=== PATIENT | female | born 1985 | race Caucasian/White ===

== ENCOUNTER → 2022-11-13 10:17 | Outpatient (CLI) | payer OTHER, SELFPAY ==
--- NOTE | ~2022-11-13 | MM_ITS ---
EXAMINATION: MM screening [facility] BI w maria del carmen HISTORY: Screening mammogram TECHNIQUE: Craniocaudal and mediolateral oblique 3-D tomosynthesis images were obtained and synthetic 2-D images were generated. CAD analysis was submitted and interpreted. COMPARISON: None, baseline BREAST PARENCHYMAL COMPOSITION: The breasts are extremely dense, which lowers the sensitivity of mamm ography. FINDINGS: RIGHT BREAST: No suspicious mass, calcification, or architectural distortion are identified to sugges t malignancy. LEFT BREAST: There is a possible low-density mass in the anterior third of the inner breast best appr eciated on the craniocaudal view. IMPRESSION: 1. Possible left breast mass. 2. Additional mammographic views and possible breast ultrasound are recommended. BI-RADS Category 0: Incomplete: Needs additional imaging evaluation. Reviewed, dictated and finalized at location A. IMPRESSION: 1. Possible left breast mass. 2. Additional mammographic views and possible breast ultrasound are recommended . BI-RADS Category 0: Incomplete: Needs additional imaging evaluation.
== END ==
PROVIDERS: PCP Obstetrics & Gynecology; Visit Provider Obstetrics & Gynecology
DX: Z12.31 Encounter for screening mammogram for malignant neoplasm of breast (principal); R92.8 Other abnormal and inconclusive findings on diagnostic imaging of breast
CPT/HCPCS: 77063; 77067

== ENCOUNTER → 2022-12-09 08:51 | Outpatient (CLI) | payer OTHER, SELFPAY ==
--- NOTE | ~2022-12-09 | MMUS_ITS ---
EXAMINATION: MM diagnostic [facility] LT w maria del carmen, US breast LT limited HISTORY: Possible left breast mass on screening mammogram TECHNIQUE: Additional 3-D tomosynthesis images of the left breast were performed and synthetic 2-D im ages were generated. CAD analysis was submitted and interpreted. High resolution limited left breast ultrasound was performed. COMPARISON: 11/13/2022 FINDINGS: MAMMOGRAPHIC FINDINGS: No persistent suspected mass is identified with spot compression of the left breast. No suspicious ca lcification or architectural distortion are identified. ULTRASOUND: There is no evidence of focal abnormal solid or cystic mass in the vicinity of the mammographic findi ng in question. IMPRESSION: 1. No mammographic or sonographic evidence of malignancy. 2. Recommend routine screening mammography in one year. BI-RADS Category 1: Negative Reviewed, dictated and finalized at location A. IMPRESSION: 1. No mammographic or sonographic evidence of malignancy. 2. Recommend routine screening mammography in one year. BI-RADS Category 1: Negative
== END ==
PROVIDERS: PCP Internal Medicine; Visit Provider Obstetrics & Gynecology
DX: N63.20 Unspecified lump in the left breast, unspecified quadrant (principal)
CPT/HCPCS: 76642; 77061; 77065; G0279

== ENCOUNTER → 2023-07-28 12:48 | Outpatient (CLI) | payer OTHER, SELFPAY ==
--- NOTE | ~2023-07-28 | US_ITS ---
EXAMINATION: US pelvic complete w TV DATE: 07/28/2023 13:17 INDICATION: Left pelvic pain. TECHNIQUE: Multiple transabdominal and transvaginal sonographic images of the pelvis were obtained. COMPARISON: None. FINDINGS: TRANSABDOMINAL ULTRASOUND: The uterus measures 8.2 x 4.6 x 4.2 cm. There is no free fluid in the pelvis. TRANSVAGINAL ULTRASOUND: The endometrial complex measures 6 mm in thickness. The right ovary is not visualized. The left ovary measures 5.9 x 4.1 x 5.1 cm. There is a 5.2 cm cyst with peripheral low level echoes in left ovary, consistent with a hemorrhagic cyst. There is vascular flow to left ovary. IMPRESSION: 1. 5.2 cm hemorrhagic cyst in left ovary. Pelvis ultrasound is recommended in 6-12 weeks. Reviewed, dictated and finalized at location E. 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 5.2 cm hemorrhagic cyst in left ovary. Pelvis ultrasound is recommended in 6 -12 weeks.
== END ==
PROVIDERS: PCP Obstetrics & Gynecology; Visit Provider Obstetrics & Gynecology
DX: R10.2 Pelvic and perineal pain (principal); N83.202 Unspecified ovarian cyst, left side
CPT/HCPCS: 76830; 76856

== ENCOUNTER → 2023-08-11 09:19 | Outpatient (CLI) | payer OTHER, SELFPAY ==
--- NOTE | ~2023-08-11 | US_ITS ---
Pelvic ultrasound. Clinical History: Left ovarian cyst COMPARISON: 07/28/2023 Technique: Realtime transabdominal and transvaginal scanning of the pelvis was performed. Color flow Doppler and Doppler spectral analysis were performed. Findings: The uterus is retroverted. The endometrial stripe has a thickness of 4 mm. No focal mass i s identified. The right ovary measures 2.7 x 2.1 x 1.8 cm. No significant right ovarian or adnexal mass is seen. There is a 5.1 cm simple left ovarian cyst, within right ovarian tissue splayed around the cyst. Vascular flow present in both ovaries on Doppler spectral analysis. There is no evidence of free fluid in the cul de sac. Impression: 5.1 cm simple left ovarian cyst, essentially unchanged from prior exam. Consider follow-up exam in 6- 8 weeks to reassess. Reviewed, dictated and finalized at [facility]. 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 Conside r follow-up exam in 6-8 weeks to reassess.
== END ==
PROVIDERS: PCP Nurse Practitioner; Visit Provider Obstetrics & Gynecology
DX: N83.202 Unspecified ovarian cyst, left side (principal)
CPT/HCPCS: 76830; 76856

== ENCOUNTER 2024-02-24 13:25 | Outpatient (CLI) | payer OTHER, SELFPAY ==
--- NOTE | ~2024-02-24 | MM_ITS ---
EXAMINATION: MM screening [facility] BI w maria del carmen HISTORY: Screening TECHNIQUE: Craniocaudal and mediolateral oblique 3-D tomosynthesis images were obtained and synthetic 2-D images were generated. CAD analysis was submitted and interpreted. COMPARISON: Comparison to multiple prior studies sequentially, with oldest reviewed study dated 11/13. BREAST PARENCHYMAL COMPOSITION: Dense: The breasts are extremely dense, which lowers the sensitivity of mammography. FINDINGS: There is no evidence of suspicious mass, calcification, or architectural distortion to sugg est malignancy in either breast. There has been no suspicious interval change. IMPRESSION: 1. No mammographic evidence of malignancy. 2. Recommend routine screening mammography in one year. BI-RADS Category 1: Negative Reviewed, dictated and finalized at location B.
== END 2024-02-24 13:26 ==
LOC: MICIMG 13:26
PROVIDERS: PCP Nurse Practitioner; Visit Provider Obstetrics & Gynecology
DX: Z12.31 Encounter for screening mammogram for malignant neoplasm of breast (principal)
CPT/HCPCS: 77063; 77067

== ENCOUNTER 2025-03-22 14:35 | Outpatient (CLI) | payer OTHER, SELFPAY ==
--- NOTE | ~2025-03-22 | MM_ITS ---
EXAMINATION: MM screening [facility] BI w maria del carmen HISTORY: Screening TECHNIQUE: Craniocaudal and mediolateral oblique 3-D tomosynthesis images were obtained and synthetic 2-D images were generated. CAD analysis was submitted and interpreted. COMPARISON: Comparison to multiple prior studies sequentially, with oldest reviewed study dated , 11/13/2022 BREAST PARENCHYMAL COMPOSITION: The breasts are extremely dense, which lowers the sensitivity of mammography. FINDINGS: There is no evidence of suspicious mass, calcification, or architectural distortion to suggest malignancy in either breast. IMPRESSION: 1. No mammographic evidence of malignancy. 2. Recommend routine screening mammography in one year. BI-RADS Category 1: Negative Reviewed, dictated and finalized at location B.
--- OUTSIDE RECORDS SUMMARY | 2025-03-22 14:38 | XMS_ITS | Clinical Summary ---
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 Prescription for antibiotics sent. Reviewed potential benefits and potential side effects of augmentin. Aware to complete full course of antibiotic. To continue otc medications. Discussed nasal saline rinses/neti pots. Discussed need to increase fluid intake. May use 1 teaspoon honey every 4 hours as needed for cough, encourage use of hot tea or hot water with honey. May use vicks vapo rub on chest and bottom of feet before bed. Cool mist humidifier in bedroom. Lots of water, rest and handwashing, no sharing cups or utensils. If symptoms worsen including but not limited to shortness of breath, chest pain and/or increasing pain please notify office or present to Emergency Department. Social History Tobacco Use Types Packs/Day Years Used Date Smoking Tobacco: Never Assessed Personal Safety Answer Date Recorded Getting School Help Needed Not on file 07/31 Comments Unknown Sex and Gender Information Value Date Recorded Sex Assigned at Not on file Legal Sex Female 3:27 PM [facility] PHYSICIAN Gender Identity Female 06/16/2022 6:49 AM [facility] PHYSICIAN Sexual Orientation Not on file Plan of Treatment Health Maintenance Due Date Last Done Comments Cervical Cancer Screening 1987 Depression Screening 1987 Hepatitis C Screening 1987 Varicella Vaccines (1 of 2 - 13+ 2-dose series) 2000 Hepatitis B Screening 2005 Regular Well Visit/Exam 18-64 2005 HPV Vaccines (1 - 3-dose SCD M series) 2014 Influenza Vaccine (#1) 2025 , 04/25/2018, 08/01/2015 DTaP/Tdap/Td Vaccine (2 - Td or Tdap) 09/19/2025 09/19/2015 Pneumococcal vaccine <65 Aged Out No longer eligible based on patient's age to complete this topic [facility]
--- OUTSIDE RECORDS SUMMARY | 2025-03-22 14:38 | XMS_ITS | Patient Health Record ---
Author Organization [facility] [employer] [place] ([address]) Address [address] [place] [address] Care Team Providers Care Supervisor [employer] Name Role Phone Duque Lakisha Primary Care Provider Nighat Vu [phone] Allergies No Known Allergies Results Component Value Reference Range Notes -GARCIA w/Reflex Reviewed date:09/26/2024 02:23:02 PM Interpretation:Normal [facility] [address] [place] [id number], Phone - [phone], Director - [place] Notes/Report: GARCIA Direct Negative Negative -C1 Esterase Inhibitor, Func Reviewed date:09/28/2024 11:33:25 AM Interpretation:Normal Performing Lab:[address] [id number], Phone - [phone], Director - [place] Notes/Report: C1 Est.Inhib.Funct. >110 Abnormal <41 Equivocal 41 - 67 Normal >67 -C1 Esterase Inhibitor, Seru m Reviewed date:09/28/2024 12:16:41 PM Interpretation:Normal Performing Lab:[address] [id number], Phone - [phone], Director - [place] Notes/Report: C1 Esterase Inhibitor, Serum 23 21-39 mg/dL -Complement, Total (CH50) ([id number]) Reviewed date:09/26/2024 02:22:45 PM Interpretation:Normal Performing Lab:[facility] [address], [place], [place] [id number], Phone - [phone], Director - [facility] Notes/Report: Complement, Total (CH50) 52 >41 U/mL Age Male Female 1 - 30 days Not Estab. Not Estab. 31 days - 6 months >32 >20 7 months - 17 years >39 >39 >17 years >41 >41 NOTE: The adult (>17 years) reference interval range is used to flag abnormals on this report. If the patient is 17 years old or younger, use the table above to determine out of range values. -Complement C4, Serum Reviewed date:10/23/2024 04:23:32 PM Interpretation:Abnormal Performing Lab:[address] [id number], Phone - [phone], Director - [facility] Notes/Report: Complement C4, Serum 9 12-38 mg/dL -Complement C4, Serum Reviewed date:08/10/2024 04:14:42 PM Interpretation:Abnormal Performing Lab:[address] [id number], Phone - [phone], Director - [facility] Notes/Report: Complement C4, Serum 10 12-38 mg/dL -Chronic Urticaria -- Anti-I gE ([id number]) Reviewed date:08/16/2024 07:34:44 AM Interpretation:Abnormal Performing Lab:[employer] [facility], [address] [place] [id number], Phone - [phone], Director - [facility] Notes/Report: Anti-IgE* See below: Normal ELEVATED This NORMA measures IgG antibodies specific for IgE. A result of normal indicates that the level of IgG anti-IgE antibodies is similar to that seen in a population of healthy individuals. A result of elevated indicates an increased level of IgG anti-IgE antibodies compared to healthy individuals. These autoantibodies have been implicated as a causative agent in autoimmune chronic urticaria and atopic dermatitis. FLAG Interpretation: A = Abnormal, H = High, L = Low -Tryptase ([id number]) Reviewed date:08/07/2024 08:05:57 AM Interpretation:Normal Performing Lab:[address], [place] [id number], Phone - [phone], Director - [facility] Notes/Report: Tryptase 2.3 2.2-13.2 ug/L -CU Panel ([id number]) Reviewed date:08/10/2024 04:15:32 PM Interpretation:Abnormal Performing Lab:[facility] [address] [id number], Phone - [phone], Director - [facility] Notes/Report: Glucose 100 70-99 mg/dL BUN 17 6-20 mg/dL Creatinine 0.84 0.57-1.00 mg/dL eGFR 92 >59 mL/min/1.73 BUN/Creatinine Ratio 20 9-23 Sodium 136 134-144 mmol/L Potassium 4.7 3.5-5.2 mmol/L Chloride 98 96-106 mmol/L Carbon Dioxide, Total 26 20-29 mmol/L Calcium 9.5 8.7-10.2 mg/dL Protein, Total 7.5 6.0-8.5 g/dL Albumin 4.6 3.9-4.9 g/dL Globulin, Total 2.9 1.5-4.5 g/dL Bilirubin, Total 0.3 0.0-1.2 mg/dL Alkaline Phosphatase 47 44-121 IU/L AST (SGOT) 10 0-40 IU/L ALT (SGPT) 16 0-32 IU/L Immunoglobulin A, Qn, Serum 224 87-352 mg/dL Immunoglobulin E, Total 15 6-495 IU/mL TSH 1.720 0.450-4.500 uIU/mL GARCIA Direct Positive Negative Rheumatoid Factor (RF) <10.0 <14.0 IU/mL Thyroid Peroxidase (TPO) Ab 66 0-34 IU/mL Thyroglobulin Antibody 5.8 0.0-0.9 IU/mL Thyroglobulin Antibody measured by [facility] . It should be noted that the presence of thyroglobulin antibodies may not be pathogenic nor diagnostic, especially at very low levels. The assay culinary director has found that four percent of individuals without evidence of thyroid disease or autoimmunity will have positive TgAb levels up to 4 IU/mL. Deamidated Gliadin Abs, IgA 4 0-19 units Negative 0 - 19 Weak Positive 20 - 30 Moderate to Strong Positive >30 Deamidated Gliadin Abs, IgG 10 0-19 units Negative 0 - 19 Weak Positive 20 - 30 Moderate to Strong Positive >30 t-Transglutaminase (tTG) IgA <2 0-3 U/mL Negative 0 - 3 Weak Positive 4 - 10 Positive >10 . Tissue Transglutaminase (tTG) has been identified as the endomysial antigen. Studies have demonstr- ated that endomysial IgA antibodies have over 99% specificity for gluten sensitive enteropathy. t-Transglutaminase (tTG) IgG 5 0-5 U/mL Negative 0 - 5 Weak Positive 6 - 9 Positive >9 Endomysial Antibody IgA Negative Negative WBC 7.1 3.4-10.8 x10E3/uL RBC 4.49 3.77-5.28 x10E6/uL Hemoglobin 13.3 11.1-15.9 g/dL Hematocrit 41.2 34.0-46.6 % MCV 92 79-97 fL MCH 29.6 26.6-33.0 pg MCHC 32.3 31.5-35.7 g/dL RDW 12.5 11.7-15.4 % Platelets 307 150-450 x10E3/uL Neutrophils 65 Not Estab. % Lymphs 28 Not Estab. % Monocytes 6 Not Estab. % Eos 1 Not Estab. % Basos 0 Not Estab. % Neutrophils (Absolute) 4.5 1.4-7.0 x10E3/uL Lymphs (Absolute) 2.0 0.7-3.1 x10E3/uL Monocytes(Absolute) 0.5 0.1-0.9 x10E3/uL Eos (Absolute) 0.1 0.0-0.4 x10E3/uL Baso (Absolute) 0.0 0.0-0.2 x10E3/uL Immature Granulocytes 0 Not Estab. % Immature Grans (Abs) 0.0 0.0-0.1 x10E3/uL Sedimentation Rate-Westergren 8 0-32 mm/hr Specific [place] 1.015 1.005-1.030 pH 8.0 5.0-7.5 Urine-Color Yellow Yellow Appearance Clear Clear WBC Esterase Negative Negative Protein Negative Negative/Trace Glucose Negative Negative Ketones Negative Negative Occult Blood Negative Negative Bilirubin Negative Negative Urobilinogen,Semi-Qn 0.2 0.2-1.0 mg/dL Nitrite, Urine Negative Negative Microscopic Examination Micr oscopic follows if indicated. Microscopic Examination See below: Micr oscopic was indicated and was performed. Anti-DNA (DS) Ab Qn 7 0-9 IU/mL Negative <5 Equivocal 5 - 9 Positive >9 SALES CONSULTANT Antibodies <0.2 0.0-0.9 AI Chaves Antibodies <0.2 0.0-0.9 AI Antiscleroderma-70 Antibodies <0.2 0.0-0.9 AI Sjogren's Anti-SS-A 0.4 0.0-0.9 AI Sjogren's Anti-SS-B <0.2 0.0-0.9 AI Antichromatin Antibodies 1.1 0.0-0.9 AI Anti-Marnie-1 <0.2 0.0-0.9 AI Anti-Centromere B Antibodies <0.2 0.0-0.9 AI See below: Autoantibody Disease Association ---- Condition Frequency --------- Antinuclear Antibody, SLE, mixed connective Direct (GARCIA-D) tissue diseases --------- dsDNA SLE 40 - 60% --------- Chromatin Drug induced SLE 90% SLE 48 - 97% --------- SSA (Ro) SLE 25 - 35% Sjogren's Syndrome 40 - 70% Lupus 100% --------- SSB (La) SLE 10% Sjogren's Syndrome 30% --------- Sm (anti-Chaves) SLE 15 - 30% --------- SALES CONSULTANT Mixed Connective Tissue Disease 95% (U1 nRNP, SLE 30 - 50% anti-ribonucleoprotein) Polymyositis and/or Dermatomyositis 20% --------- Scl-70 (antiDNA Scleroderma (diffuse) 20 - 35% topoisomerase) Crest 13% --------- Marnie-1 Polymyositis and/or Dermatomyositis 20 - 40% --------- Centromere B Scleroderma - Crest variant 80% WBC None seen 0 - 5 /hpf RBC 0-2 0 - 2 /hpf Epithelial Cells (non renal) 0-10 0 - 10 /hpf Casts None seen None seen /lpf Bacteria None seen None seen/Few -Chronic Urticaria -- Autoim mune IgE receptor antibody ([id number]) Reviewed date:08/16/2024 07:34:27 AM Interpretation:Normal Performing Lab:[place], [address], [facility], [place], [place] [id number], Phone - [phone], [facility] Notes/Report: cu index 3.4 <10 The CU Index(R) test is the second generation Functional Anti-FceR test. Patients with a CU Index(R) greater than or equal to 10 have basophil reactive factors in their serum which supports an autoimmune basis for disease. *This test was developed and its performance characteristics determined by [employer]. It has not been cleared or approved by the U.S. Food and Drug Administration. FLAG Interpretation: A = Abnormal, H = High, L = Low Reason For Referral No Information Medications Medication SIG (Take, Route, Frequency, Duration) Notes Start Date End Date Status Famotidine 20 MG TAKE 1 TABLET BY YOSEPH TH TWICE A DAY FOR 30 DAYS; Duration: 90 Active Cetirizine HCl 10 MG TAKE 1 TABLET BY MO UTH TWICE A DAY FOR 30 DAYS; Duration: 90 Active Montelukast Sodium 10 MG TAKE 1 TABLET B Y MOUTH EVERY DAY FOR 30 DAYS; Duration: 90 Active Montelukast Sodium 10 MG 1 tablet Orally Once a day; Duration: 30 days Active Famotidine 20 MG 1 tablet Orally Twic e a day; Duration: 30 days Active Cetirizine HCl 10 MG 1 tablet Orally Twi ce a day; Duration: 30 days Active predniSONE 20 MG 2 tablets Orally Once a day; Duration: 5 days Call office before use Active Auvi-Q 0.3 MG/0.3ML as directed Injectio n as needed; Duration: 30 days Active Rosa 0.25-35 MG-MCG 1 tablet Orally Once a day Active Social History Tobacco Use: Social History Observation Description Date Details (start date - stop date) Never Smoker NA - NA Sex Assigned At : Social History Observation Description Sex Assigned At Female Tobacco Control (Standard) Question Answer Notes Tobacco use: Nonsmoker AUDIT-C (Standard) Question Answer Notes Did you have a drink contain ing alcohol in the past year? Yes How often did you have a dri nk containing alcohol in the past year? 2 to 4 times a month (2 points) How many drinks did you have on a typical day when you were drinking in the past year? 1 or 2 drinks (0 point) How often did you have six o r more drinks on one occasion in the past year? Never (0 point) Points 2 Interpretation Negative Vital Signs Blood pressure diastolic 72 mm Hg 01/16/2025 Oximetry 99 % 01/16/2025 Height 65 in 01/16/2025 Blood pressure systolic 109 mm Hg 01/16/2025 Weight 132.6 lbs 01/16/2025 BMI 22.06 kg/m2 01/16/2025 Encounters Encounter [facility] Date [facility] [address] 01/16/2025 Nighat Morales Other urticaria L5 0.8 ; Pruritus, unspecified L29.9 and Localized swelling, mass and lump, head R22.0 [facility] [address] [place] [address] 09/25/2024 Nighat Morales Other urticaria L50. 8 ; Pruritus, unspecified L29.9 and Localized swelling, mass and lump, head R22.0 [facility] [address] [place] [address] 06/27/2024 Nighat Morales Other urticaria L50. 8 ; Pruritus, unspecified L29.9 and Localized swelling, mass and lump, head R22.0 [facility] [address] 10/23/2024 Nighat BELLE [facility] [address] [place] [address] 08/10/2024 Nighat BELLE [facility] [address] [place] [address] 09/20/2024 Nighat BELLE [facility] [address] [place] [address] 09/20/2024 Nighat VANE[address] [place] [address] 09/20/2024 Nighat Morales [facility] [address] [place] [address] 03/19/2025 Nighat Morales Assessments Encounter Date Diagnosis (ICD Code) Assessment Notes Treatment Notes Treatment Clinical Notes Section Notes 06/27/2024 Pruritus, unspecified (ICD-10 - L29.9) See plan above 06/27/2024 Other urticaria (ICD-10 - L50.8) Skylar presents with complaints of raised, erythematous and pruritic wheals that have occurred randomly throughout her life. Most recently occurred 3 weeks ago, she awoke to raised wheals and pruritus that lasted for several days. Wheals would move to different locations. She was treated with antihistamines and prednisone. Symptoms have not recurred since. The last time Skylar experienced similar symptoms was one decade ago. Symptoms have been occurring for > 6 weeks throughout her life. She denies clear triggers. Does admit to significant stress at the time. - Given the history and presenting symptoms, consider probable chronic spontaneous urticaria with episodes of angioedema. - Skylar does not want to start daily medications at this time. At times symptoms will occur months-years apart. Due to this, discussed plan of starting Zyrtec 10 mg BID, Pepcid 20 mg BID and Singulair 10 mg at night if symptoms flare. Will also send a safety prescription of prednisone for Skylar to keep on hand, however she must contact the office before use. - Will check labs for underlying autoimmune, thyroid, and mast cell conditions. Recent CBC and CMP normal. - Briefly discussed Xolair for refractory symptoms. -Return follow-up in one month for further evaluation and management and laboratory review 09/25/2024 Pruritus, unspecified (ICD-10 - L29.9) See plan above 09/25/2024 Other urticaria (ICD-10 - L50.8) Skylar presented to her initial visit with complaints of raised, erythematous and pruritic wheals that have occurred randomly throughout her life. Most recently in May, she awoke to raised wheals and pruritus that lasted for several days. Wheals would move to different locations. She was treated with antihistamines and prednisone. Symptoms have not recurred since. The last time Skylar experienced similar symptoms was one decade ago. Symptoms have been occurring for > 6 weeks throughout her life. She denies clear triggers. Does admit to significant stress at the time. - Given the history and presenting symptoms, consider probable chronic spontaneous urticaria with episodes of angioedema. - Skylar does not want to start daily medications at this time. At times symptoms will occur months-years apart. Due to this, discussed plan of starting Zyrtec 10 mg BID, Pepcid 20 mg BID and Singulair 10 mg at night if symptoms flare. Will also send a safety prescription of prednisone for Skylar to keep on hand, however she must contact the office before use. Skylar has had two hive flares since last visit, which improved with antihistamines as above. She has not required oral prednisone. - Ordered labs to check for underlying autoimmune, thyroid, and mast cell conditions. Labs show positive GARCIA screening. Also slightly reduced C4. Will obtain full angioedema panel; Skylar denies history of swelling outside the setting of urticaria. No family history of swelling. Will also repeat GARCIA as Skylar reports recent negative GARCIA with her PCP. Consider Rheumatology evaluation, appreciate PCP arranging. - Briefly discussed Xolair for refractory symptoms. - Return for follow-up in three months for further evaluation and management 01/16/2025 Pruritus, unspecified (ICD-10 - L29.9) See plan above 01/16/2025 Other urticaria (ICD-10 - L50.8) Skylar presented to her initial visit with complaints of raised, erythematous and pruritic wheals that have occurred randomly throughout her life. Most recently in May, she awoke to raised wheals and pruritus that lasted for several days. Wheals would move to different locations. She was treated with antihistamines and prednisone. Symptoms have not recurred since. The last time Skylar experienced similar symptoms was one decade ago. Symptoms have been occurring for > 6 weeks throughout her life. She denies clear triggers. Does admit to significant stress at the time. - Given the history and presenting symptoms, consider probable chronic spontaneous urticaria with episodes of angioedema. - Skylar does not want to start daily medications at this time. At times symptoms will occur months-years apart. Due to this, discussed plan of starting Zyrtec 10 mg BID, Pepcid 20 mg BID and Singulair 10 mg at night if symptoms flare. Also sent a safety prescription of prednisone for Skylar to keep on hand, however she must contact the office before use. Skylar has not had interval symptoms. - Ordered labs to check for underlying autoimmune, thyroid, and mast cell conditions. Labs show positive GARCIA screening. Also slightly reduced C4. Obtained full angioedema panel that returned within normal range aside from C4; Skylar denies history of swelling outside the setting of urticaria. No family history of swelling. We will plan to obtain a biopsy if symptoms occur. Skylar is in agreement, slated to establish care with dermatology. - Briefly discussed Xolair for refractory symptoms. - Return for follow-up in six months for further evaluation and management 01/16/2025 Localized swelling, mass and lump, head (ICD-10 - R22.0) Skylar reports mild facial, hand and feet swelling associated with urticaria. No history of swelling at other times. No family history of swelling. - AIE sent with instructions for Skylar to carry as a precaution, Skylar is carrying at all times 09/25/2024 Localized swelling, mass and lump, head (ICD-10 - R22.0) Skylar reports mild facial, hand and feet swelling associated with urticaria. No history of swelling at other times. No family history of swelling. - AIE sent with instructions for Skylar to carry as a precaution 06/27/2024 Localized swelling, mass and lump, head (ICD-10 - R22.0) Skylar reports mild facial, hand and feet swelling associated with urticaria. No history of swelling at other times. No family history of swelling. - Will send AIE to carry as a precaution, we discussed indications of use 09/25/2024 Other 01/16/2025 Other 06/27/2024 Other Plan Of Treatment Next Appt Details Provider Name:Nighat zurita, 07/10/2025 10:30:00 AM, [address] [facility], [address], [place], [address], Insurance Providers Payer Name Payer Address Payer Phone Subscriber Number Group Number Insured Name Patient Relationship to Insured Coverage Start Date Coverage End Date [facility] [address] [address] [place] [address] [id number] Prasanna Harding Spouse - patient is the spouse of the insured 4 Medical (General) History Surgical History Surgery Date(Month/Year) D & C
--- OUTSIDE RECORDS SUMMARY | 2025-03-22 14:38 | XMS_ITS | Clinical Summary ---
Author Organization [facility] Address [address] [address] Care Team Providers Care Radio Engineer Name Role Phone Unavailable Primary Care Provider Unavailabl e Allergies No known active allergies Medications Rosa 0.25-35 mg-mcg tablet Take 1 Tablet by mouth daily. 06/02/2021 Active Active Problems No known active problems Immunizations Immunization Administration Dates Next Due (PFIZER)(12 YR UP) COVID-19 VACCINE - EMERGENCY USE AUTHORIZATION, MRNA, [id number](PF) 30 MCG/0.3 ML IM SUSP 06/06/2021 (SPIKEVAX) (12 YRS UP PRIMAR Y SERIES) COVID-19 VACCINE - [id number](PF) 100 MCG/0.5 ML IM SUSP 10/15/2020,09/04/2020 Influenza Seasonal Unspecified Formulation IM Family History Medical History Relation Name Comments No Known Problems Brother No Known Problems Daughter Sudden Father Esophageal Cancer Maternal Grandfather Thyroid Cancer Maternal Grandmother Hypertension Mother COPD Paternal Grandfather Unknown Paternal Grandmother Relation Name Status Comments Brother Alive Daughter Alive Father Maternal Grandfather Maternal Grandmother Mother Alive Paternal Grandfather Paternal Grandmother Social History Tobacco Use Types Packs/Day Years Used Date Smoking Tobacco: Former Smokeless Tobacco: Never Alcohol Use Standard Drinks/Week Comments Yes 0 (1 standard drink = 0.6 oz pur e alcohol) occasionally Comments No Sex and Gender Information Value Date Recorded Sex Assigned at Not on file Legal Sex Female 7:19 AM AUTOMOTIVE SERVICE 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 Gender Identity Not on file Sexual Orientation Not on file Last Filed Vital Signs Vital Sign Reading Time Taken Comments Blood Pressure 98/62 07/14/2021 8:37 AM AUTOMOTIVE SERVICE MANAGER Pulse 86 07/14/2021 8:37 AM AUTOMOTIVE SERVICE MANAGER Temperature 36.8 C (98.2 F) 07/14/2021 8:37 AM AUTOMOTIVE SERVICE MANAGER Respiratory Rate 16 07/14/2021 8:37 AM AUTOMOTIVE SERVICE MANAGER Oxygen Saturation 99% 07/14/2021 8:37 AM AUTOMOTIVE SERVICE MANAGER Inhaled Oxygen Concentration - - Weight 60.8 kg (134 lb) 07/14/2021 8:37 AM AUTOMOTIVE SERVICE MANAGER Height 165.1 cm (5' 5) 07/14/2021 8:37 AM AUTOMOTIVE SERVICE MANAGER Body Mass Index 22.3 07/14/2021 8:37 AM AUTOMOTIVE SERVICE MANAGER Plan of Treatment Health Maintenance Due Date Last Done Comments HEPATITIS B VACCINES (1 of 3 - 19+ 3-dose series) 2006 HPV/Cotest (21-29) 2008 HPV VACCINES (1 - 3-dose SCD M series) 2014 CERVICAL CANCER SCREENING 2017 HPV/Cotest (30-65) 2017 PAP SMEAR 2017 COVID-19 Vaccine ( - 2023-2 5 season) 2024 06/06/2021, 10/15/2020, 09/04/2020 INFLUENZA VACCINE (#1) 2025 05/26/2021 DTAP/TDAP/TD VACCINES (2 - T d or Tdap) 09/19/2025 09/19/2015 Insurance RX [employer]
--- OUTSIDE RECORDS SUMMARY | 2025-03-22 14:38 | XMS_ITS | Clinical Summary ---
Author Organization [facility] Address [address] [place] [address] Care Team Providers Care Court Commissioner Name Role Phone Vaibhav Rock DO Primary Care Provider Source Comments [facility],non-owned Affiliates and Associated Physician Practices is amultiple site organization consisting of ambulatory clinics and hospital sitesin [place], [place], [place] and [place]. This disclosure is being madepursuant to the Care Everywhere program and may not contain all information available regarding this patient. Last updated 18.[facility] Allergies Active Allergy Reactions Criticality Noted Date Comments Adhesive Sensitivity Urticaria,Rash,Swelling Medium severe Sodium Hypochlorite Urticaria Medium 09/05/2015 Bleach Medications * Be aware that medications may not be up to date on this document. Alwaysverify current medications with the patient. Vit-Fe Fumarate-FA ( VITAMIN) 28-0.8 MG tablet Take 1 Tab by mouth once daily 30 Tab 11 6 Active Additional Information Patient not taking.Reported on 08/02/2018 ibuprofen (MOTRIN) 600 MG tablet Take 1 Tab by mouth every 6 hours as needed for Pain 60 Tab 2 6 Active Additional Information Patient not taking.Reported on 08/02/2018 drospirenone-et hinyl estradiol (ROSALES) 3-0.02 MG tablet Take 1 tablet by mouth once daily 3 packet 4 9 Active Active Problems Problem Noted Date Diagnosed Date Well woman exam with routine gynecological exam 08/02/2018 Qfstv-Elgxkzdct-Kxtyt (WPW) syndrome 10/02/2015 Overview (11/24/2015): Seen by [facility] and holter monitoring performed. Plan for treadmill stress test after . Avoid QT prolonging medications. Retained portions of placenta Resolved Problems Problem Noted Date Diagnosed Date Resolved Date (normal spontaneous vaginal delivery) 08/02/2018 Immunizations Immunization Administration Dates Next Due INFLUENZA VACCINE 04/25/2018,08/01/2015 TDAP (7yrs+) 09/19/2015 Family History Medical History Relation Name Comments Cancer Maternal Grandfather Cancer Maternal Grandmother Stroke Maternal Grandmother Relation Name Status Comments Maternal Grandfather Maternal Grandmother Social History Tobacco Use Types Packs/Day Years Used Date Smoking Tobacco: Never Smokeless Tobacco: Never Tobacco Cessation:Counseling Given: Yes Alcohol Use Standard Drinks/Week Comments No 0 (1 standard drink = 0.6 oz pur e alcohol) Comments Unknown Sex and Gender Information Value Date Recorded Sex Assigned at Not on file Legal Sex Female 9:42 AM [employer] Gender Identity Not on file Sexual Orientation Not on file Last Filed Vital Signs Vital Sign Reading Time Taken Comments Blood Pressure 112/80 10/14/2018 1:32 PM CDT Pulse 70 10/14/2018 1:32 PM CDT Temperature 37.2 C (98.9 F) 08/02/2018 10:48 AM [employer] Respiratory Rate 16 08/02/2018 10:48 AM [employer] Oxygen Saturation 100% 10/14/2018 1:32 PM CDT Inhaled Oxygen Concentration - - Weight 64 kg (141 lb) 10/14/2018 1:32 PM CDT Height 167.6 cm (5' 6) 10/14/2018 1:32 PM CDT Body Mass Index 22.76 10/14/2018 1:32 PM CDT Plan of Treatment Health Maintenance Due Date Last Done Comments HIV SCREENING 2002 HEPATITIS C SCREENING 05/24/2005 HEPATITIS B VACCINE (1 of 3 - 19+ 3-dose series) 2006 HPV VACCINE (1 - 3-dose SCDM series) 2014 PAP with HPV 08/02/2023 08/02/2018 COVID-19 VACCINE (1 - 2023-2 5 season) 2024 DEPRESSION SCREENING 07/26/2024 INFLUENZA VACCINE (#1) 2025 8, 08/01/2015 DTAP/TDAP/TD VACCINES (2 - T d or Tdap) 09/19/2025 09/19/2015 ZOSTER VACCINE (1 of 2) 2037 HIB VACCINE Aged Out No longer eligi ble based on patient's age to complete this topic MENINGOCOCCAL (Group B) VACCINE SHARED DECISION-MAKING Aged Out No longer eligible based on patient's age to complete this topic MENINGOCOCCAL GROUPS A/C/Y/W VACCINE Aged Out No longer eligible b ased on patient's age to complete this topic PNEUMOCOCCAL VACCINE Aged Out No long er eligible based on patient's age to complete this topic Procedures Procedure Name Priority Date/Time Associated Diagnosis Comments HPV DETECTION HIGH RISK MI Routine 08/02/2018 12:21 PM [employer] Well woman exam with routine gynecological exam from Last 3 Months or Most Recently Relevant to Health Maintenance Results * (ABNORMAL) HPV DETECTION HIGH RISK MI (08/02/2018 12:21 PM [employer]) High Risk Human Papilloma Result Detected( A) Not Detected 08/04/2018 3:30 PM [employer] [employer] High Risk Human Papilloma Interp 08/04/2018 3:30 PM [employer] [facility] Comment:High Risk Human Santana lloma Virus - Detected Pathology/Cytolo gy MISCELLANEOUS SAMPLES / Unknown 08/02/2018 12:21 PM [employer] 08/03/2018 12:21 PM [employer] Narrative [facility] - 08/04/2018 3:30 PM [employer] Nucleic acid isolated from the specimen was analyzed with a nucleic acid amplification test (FDA approved Gen-Probe HPV Assay) to detect high risk human papilloma virus (Types: 16, 18, 31, 33, 35, 39, 45, 51, 52, 56, 58, 59, 66, and 68). The reference range is Not Detected. Comment: These test results should not be used as the sole basis for clinical assessment and treatment of patients. These results should always be correlated with other available data (cytology, histology, and clinical information). [facility] - MICROBIOLOGY ORD ERABLES Final Result [facility] [address] [place] [address], [facility] [phone] from Last 3 Months or Most Recently Relevant to Health Maintenance Insurance [facility] Advance Directives * Full Code (Latest Code Status on File) Date Activated Date Inactivated Comments 11/24/2015 2:03 AM 11/26/2015 12:04 PM * Full Code Date Activated Date Inactivated Comments 11/12/2015 9:55 AM 11/12/2015 11:31 AM * Full Code Date Activated Date Inactivated Comments 10/02/2015 10:10 AM 10/02/2015 1:[address] Commissioner Relationship Specialty Start Date End Date Vaibhav Rock DO PCP - General Internal Medicine 10/02/15
== END 2025-03-22 14:36 | disposition home or self-care (01) ==
LOC: ANHFOHIMG 14:37
PROVIDERS: PCP Nurse Practitioner; Visit Provider Obstetrics & Gynecology
DX: Z12.31 Encounter for screening mammogram for malignant neoplasm of breast (principal)
CPT/HCPCS: 77063; 77067